=== PATIENT | male | born 1980 | race Two or more races ===

== ENCOUNTER → 2020-03-30 | Outpatient (CLI) | payer OTHER | END | disposition home or self-care (01) | LOC: RAD 14:10 | PROVIDERS: ATTEND Orthopaedic Surgery | DX: M51.37 Other intervertebral disc degeneration, lumbosacral region (principal); M25.78 Osteophyte, vertebrae; M48.07 Spinal stenosis, lumbosacral region; M13.80 Other specified arthritis, unspecified site | CPT/HCPCS: 72100 ==